=== PATIENT | female | born 1960 | race Caucasian/White ===

== ENCOUNTER → 2020-05-26 11:12 | Outpatient (BNVA) | payer BC, SELFPAY | PROVIDERS: Family Provider Family Medicine; PCP Family Medicine; Visit Provider Internal Medicine | DX: M10.9 Gout, unspecified (principal); Z11.59 Encounter for screening for other viral diseases; Z79.899 Other long term (current) drug therapy; D86.9 Sarcoidosis, unspecified; M25.50 Pain in unspecified joint; E11.9 Type 2 diabetes mellitus without complications; Z79.84 Long term (current) use of oral hypoglycemic drugs | CPT/HCPCS: 36415; 99204 ==

== ENCOUNTER 2020-05-26 13:39 | Outpatient (CLI) | payer BC, SELFPAY ==
--- NOTE | 2020-05-26 13:47 | XRR_ITS ---
PROCEDURE INFORMATION: Exam: XR Left Foot Exam date and time: 05/26/2020 1:51 PM Age: 59 years old Clinical indication: Pain; Foot; Bilateral; Additional info: Foot pain TECHNIQUE: Imaging protocol: XR Left foot. Views: 1 or 2 views. COMPARISON: No relevant prior studies available. FINDINGS: Bones/joints: Normal. Soft tissues: Normal. XR/XR foot LT 2V [id number] IMPRESSION: No acute findings.
--- NOTE | 2020-05-26 13:47 | XRR_ITS ---
PROCEDURE INFORMATION: Exam: XR Left Hand Exam date and time: 05/26/2020 1:51 PM Age: 59 years old Clinical indication: Pain; Hand; Bilateral; Additional info: Hand pain TECHNIQUE: Imaging protocol: XR Left hand. Views: 3 or more views. COMPARISON: CR XR hand LT min 3V* [id number] 02/03/2020 11:53 AM FINDINGS: Bones/joints: Normal. Soft tissues: Soft tissue edema is seen in the lateral aspect of the hand. XR/XR hand LT 2V [id number] IMPRESSION: 1. No acute bony abnormality. 2. Soft tissue edema lateral hand
--- NOTE | 2020-05-26 13:47 | XRR_ITS ---
PROCEDURE INFORMATION: Exam: XR Pelvis Exam date and time: 05/26/2020 1:51 PM Age: 59 years old Clinical indication: Pelvic pain; Additional info: Si pain TECHNIQUE: Imaging protocol: XR pelvis. Views: 1 or 2 view. COMPARISON: No relevant prior studies available. FINDINGS: Bones/joints: Unremarkable. No acute fracture. Soft tissues: Unremarkable. XR/XR pelvis 1-2V* [id number] IMPRESSION: No acute findings.
--- NOTE | 2020-05-26 13:47 | XRR_ITS ---
PROCEDURE INFORMATION: Exam: XR Right Hand Exam date and time: 05/26/2020 1:51 PM Age: 59 years old Clinical indication: Pain; Hand; Bilateral; Additional info: Hand pain TECHNIQUE: Imaging protocol: XR Right hand. Views: 1 or 2 views. COMPARISON: No relevant prior studies available. FINDINGS: Bones/joints: Normal. Soft tissues: Normal. XR/XR hand RT 2V [id number] IMPRESSION: No acute findings.
--- NOTE | 2020-05-26 13:47 | XRR_ITS ---
PROCEDURE INFORMATION: Exam: XR Left Knee Exam date and time: 05/26/2020 1:51 PM Age: 59 years old Clinical indication: Pain; Knee; Bilateral; Additional info: Knee pain TECHNIQUE: Imaging protocol: XR Left knee. Views: 1 or 2 views. COMPARISON: No relevant prior studies available. FINDINGS: Bones/joints: Negative for acute bony abnormality. There is narrowing of the patellofemoral compartment and the medial compartment consistent with moderate osteoarthritis. Soft tissues: Normal. XR/XR knee LT 1-2V [id number] IMPRESSION: 1. Moderate osteoarthritis 2. Otherwise No acute findings.
--- NOTE | 2020-05-26 13:47 | XRR_ITS ---
PROCEDURE INFORMATION: Exam: XR Right Knee Exam date and time: 05/26/2020 1:51 PM Age: 59 years old Clinical indication: Pain; Knee; Bilateral; Additional info: Knee pain TECHNIQUE: Imaging protocol: XR Right knee. Views: 1 or 2 views. COMPARISON: No relevant prior studies available. FINDINGS: Bones/joints: Narrowing of the medial and patellofemoral compartment is seen consistent with osteoarthritis. Negative for acute bony abnormality. Soft tissues: Normal. XR/XR knee RT 1-2V [id number] IMPRESSION: No acute findings.
--- NOTE | 2020-05-26 13:47 | XRR_ITS ---
PROCEDURE INFORMATION: Exam: XR Right Foot Exam date and time: 05/26/2020 1:51 PM Age: 59 years old Clinical indication: Pain; Foot; Bilateral; Additional info: Foot pain TECHNIQUE: Imaging protocol: XR Right foot. Views: 1 or 2 views. COMPARISON: No relevant prior studies available. FINDINGS: Bones/joints: Negative for acute bony abnormality Soft tissues: Unremarkable XR/XR foot RT 2V [id number] IMPRESSION: No acute findings.
== END 2020-05-26 13:40 | disposition home or self-care (01) ==
LOC: RADWPI 13:43
PROVIDERS: Family Provider Family Medicine; PCP Family Medicine; Visit Provider Internal Medicine
DX: M10.9 Gout, unspecified (principal); M17.12 Unilateral primary osteoarthritis, left knee; M25.442 Effusion, left hand; D86.9 Sarcoidosis, unspecified
CPT/HCPCS: 72170; 73120; 73560; 73620; 82306; 82310; 82728; 83735; 83970; 84100; 84550; 85651; 86140; 86431; 86704; 86803; 86812; 87340

== ENCOUNTER → 2020-06-22 09:48 | Outpatient (BNVA) | payer BC, SELFPAY | PROVIDERS: Family Provider Family Medicine; PCP Physician Assistant; Visit Provider Internal Medicine | DX: M10.9 Gout, unspecified (principal); M25.50 Pain in unspecified joint; M32.9 Systemic lupus erythematosus, unspecified; Z15.89 Genetic susceptibility to other disease; R70.0 Elevated erythrocyte sedimentation rate; E55.9 Vitamin D deficiency, unspecified; R94.5 Abnormal results of liver function studies | CPT/HCPCS: 99214 ==

== ENCOUNTER → 2020-06-29 11:31 | Outpatient (BNVA) | payer BC, SELFPAY | PROVIDERS: Family Provider Family Medicine; PCP Physician Assistant; Visit Provider Internal Medicine | DX: M10.9 Gout, unspecified (principal); R70.0 Elevated erythrocyte sedimentation rate; Z11.1 Encounter for screening for respiratory tuberculosis; Z79.899 Other long term (current) drug therapy; Z15.89 Genetic susceptibility to other disease | CPT/HCPCS: 36415; 80053; 82784; 83516; 84550; 85025; 85651; 86480 ==

== ENCOUNTER 2020-07-06 10:56 | Emergency (ER) | payer BC, SELFPAY ==
[2020-07-06 11:03] VITALS: BP 192/113; PULSE 99; RESP 16; TEMP 36.8; O2SAT 100; BMI 53.1
--- NOTE | 2020-07-06 11:03 | ED_ITS ---
HPI - Nausea/Vomiting/Diarrhea General: Chief complaint: Nausea/Vomiting/Diarrhea Stated complaint: N/V/D Time Seen by Provider: 07/06/20 10:57 Source: patient and EMS Mode of arrival: EMS Limitations: no limitations History of Present Illness: HPI Narrative: 59-year-old female has a long history of gout states rheumatology started on vitamin D little over a week ago and since then she had issues with nausea vomiting diarrhea. She states she is also having a gout flareup and has extreme leg pain is having difficulty walking due to the pain. She denies any abdominal pain. She denies any fever. She denies any worsening improving factors. Associated nausea: Yes Associated symtoms: Reports nausea; Denies chest pain, dysuria or headache(s) Review of Systems Const: Denies: fever(s), chills, body aches or change in appetite Eyes: Denies: blurry vision or eye discomfort ENMT: Denies: throat pain or dental pain Card: Denies: chest pain Resp: Denies: dyspnea GI: Reports: nausea, vomiting and diarrhea : Denies: dysuria Musc: Reports: extremity pain Skin/Breast: Denies: rash Neuro: Denies: headache(s) Psych: Denies: depression [place]/Lymph: Denies: easy bruising All/Imm: Denies: urticaria PFSH ED PFSH: Medical History Gout Family History Mother Cancer CAD (coronary artery disease) Diabetes Hypertension Grandfather Diabetes Social History (Updated 07/06/20 @ 11:09 by Charlie Garcia RN) Smoking and tobacco status: never smoked Alcohol intake: never Substance/Drug Use: never Lives independently: Yes Household members: spouse Marital status: Current occupational status: retired History of recent travel: No Physical Exam Const: COMMON NORMALS: no acute distress, patient oriented x3 and healthy appearing HENMT: COMMON NORMALS: normocephalic and atraumatic HEAD & SCALP: normocephalic and atraumatic Eye: COMMON NORMALS: Equal, round and reactive pupils present and EOMs intact bilaterally PUPIL: Yes Equal, round and reactive pupils present Neck/C-Spine: COMMON NORMALS: full ROM and supple Chest: COMMONS NORMALS: normal inspection of the chest and normal palpation of entire chest wall Resp: COMMON NORMALS: normal respiratory effort, No retractions, No use of accessory muscles and clear to auscultation bilaterally AUSCULTATION: clear to auscultation bilaterally Cardio: COMMON NORMALS: regular rate, regular rhythm and No murmurs present (Cardio) RATE: regular rate RHYTHM: regular rhythm GI: COMMON NORMALS: Normal to inspection, nondistended, normoactive bowel sounds present, Soft to palpation, non-tender and no masses PALPATION: Yes Soft to palpation Extremity: COMMON NORMALS: normal to inspection NARRATIVE EXTREMITY EXAM: Tenderness to bilateral ankles Neuro: COMMON NORMALS: patient oriented x3, moves all extremities and no focal motor deficits Psych: COMMON NORMALS: mental status grossly normal, Normal thought process present and cooperative THOUGHT PROCESS: Normal thought process present Skin: COMMON NORMALS: no rashes or lesions noted and no wounds GENERAL SKIN EXAM: no rashes or lesions noted Course Vital Signs: Vital signs: Vital Signs Temperature 98.2 F 07/06/20 11:03 Pulse Rate 99 07/06/20 11:03 Respiratory Rate 20 H 07/06/20 11:50 Blood Pressure 192/113 07/06/20 11:03 Pulse Oximetry 100 07/06/20 11:03 MDM - Nausea/Vomiting/Diarrhea MDM Narrative: Medical decision making narrative: Patient presents here with nausea along with vomiting likely from her new medication. She also has chronic gout and has leg pain from that. She has no acute findings no signs of DVT in her legs. Abdominal exam is benign with no acute surgical abdomen. 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 She is return if worsening. She understands and agrees to plan. Lab Data: Labs: Lab Results 07/06/20 07/06/20 Range/Units 12:00 12:00 WBC 13.5 H (4.0-10.0) 10^3/ uL RBC 4.41 (4.1-5.3) 10^6/u L Hgb 11.5 (11.5-15.3) g/dL Hct 37.4 (37.0-47.0) % MCV 84.8 (81-99) fL MCH 26.1 L (28.0-34.0) pg MCHC 30.7 (30.0-36.0) g/dL RDW 15.0 (12.1-15.1) % Plt Count 361 (130-400) 10^3/c mm MPV 10.9 H (7.4-10.4) fL Neut % (Auto) 80.2 % Lymph % (Auto) 9.4 % [place] % (Auto) 9.2 % Eos % (Auto) 0.1 % Baso % (Auto) 0.4 % Neut # (Auto) 10.85 H (1.8-7.7) 10^3/u L Lymph # (Auto) 1.3 (0.8-4.8) 10^3/u L [place] # (Auto) 1.2 H (0.2-0.9) 10^3/u L Eos # (Auto) 0.0 (0.0-0.8) 10^3/u L Baso # (Auto) 0.1 (0.0-0.1) 10^3/u L Nucleated RBC % (a uto) 0 % Nucleated RBCs # 0.0 /100WBC Sodium 135 L (136-145) mmol/L Potassium 4.3 (3.5-5.1) mmol/L Chloride 96 L (98-107) mmol/L Carbon Dioxide 25 (22-29) mmol/L Anion Gap 18.3 (5-19) BUN 16 (6-20) mg/dL Creatinine 0.9 (0.5-0.9) mg/dL GFR Calculation 64.1 L (90-130) mL/min Glucose 255 H (65-115) mg/dL Calculated Osmolal ity 290 (285-295) mOsm/k g Calcium 9.9 (8.5-10.5) mg/dL Total Bilirubin 0.4 (0.15-1.2) mg/dL AST 12 (0-32) U/L ALT 11 (0-33) U/L Alkaline Phosphata se 132 H (35-105) IU/L Total Protein 8.6 (6.6-8.7) g/dL Albumin 3.7 (3.5-5.2) g/dL Globulin 4.9 H (1.3-4.6) g/dL Lipase 42 (13-60) U/L Discharge Plan Discharge Patient Disposition: Home Clinical Impression: Gout Qualifiers: Gout site: unspecified site Gout etiology: unspecified cause Chronicity: acute Qualified Code(s): M10.9 - Gout, unspecified Vomiting Qualifiers: Vomiting type: unspecified Vomiting Intractability: unspecified Nausea presence: with nausea Qualified Code(s): R11.2 - Nausea with vomiting, unspecified Condition: Stable Prescriptions: [place] 5-325 mg tablet 1 tab PO Q6H PRN (Reason: pain) Qty: 14 RF: 0 ondansetron 4 mg tablet,disintegrating 4 mg PO Q6H PRN (Reason: nausea and vomiting) Qty: 14 RF: 0 No Action allopurinol 100 mg tablet 400 mg PO DAILY Qty: 120 RF: 2 albuterol sulfate [ProAir HFA] 90 mcg/actuation HFA aerosol inhaler 2 puff INHALATION Q6H PRN (Reason: Shortness Of Breath) RF: 0 amlodipine 5 mg tablet 5 mg PO DAILY RF: 0 fluoxetine [Prozac] 10 mg capsule 10 mg PO DAILY RF: 0 valsartan 160 mg tablet 160 mg PO DAILY RF: 0 colchicine 0.6 mg capsule 0.6 mg PO BID RF: 0 atorvastatin [Lipitor] 40 mg tablet 40 mg PO DAILY RF: 0 metformin 500 mg tablet 500 mg PO BID RF: 0 Ozempic 0.25 mg or 0.5 mg(2 mg/1.5 mL) pen injector 0.5 mg SUBCUT .weekly RF: 0 cholecalciferol (vitamin D3) 1,250 mcg (50,000 unit) capsule 50,000 unit PO .qweek Qty: 14 RF: 0 pioglitazone 15 mg tablet 15 mg PO DAILY RF: 0 Discharge Orders: Discharge Order (Routine); Ordered 07/06/20 Ordered By: Nicolas Pantoja Referrals: Sunshine Brooke PA [Primary Care Provider] - 1-3 days Discharge Diet: Advance as tolerated Discharge Activity: Resume usual activity Patient Instructions: Acute Nausea and Vomiting (ED) Coding Level of Care Code ED Tutoring Clinician for Yarielg Fwd Exam Comprehensive
[2020-07-06] MEDS: sodium chloride 0.9% 1,000 ML 999 ML IV (11:46)
[2020-07-06 11:50] VITALS: RESP 20
[2020-07-06] MEDS: ondansetron 2 mg/ML SDV 2 mL 4 MG IVP (11:50)
[2020-07-06] MEDS: morphine 4 mg/mL SDV 1 mL IVP (11:50)
[2020-07-06 12:13] LABS: Basophils # 0.1 10^3/uL (0.0-0.1); Basophils % 0.4 %; Eosinophils % 0.1 %; Hematocrit 37.4 % (37.0-47.0); Hemoglobin 11.5 g/dL (11.5-15.3); Lymphocytes # 1.3 10^3/uL (0.8-4.8); Lymphocytes % 9.4 %; Mean Corpuscular HGB Conc 30.7 g/dL (30.0-36.0); Mean Corpuscular Hemoglobin 26.1 pg (28.0-34.0); Mean Corpuscular Volume 84.8 fL (81-99); Mean Platelet Volume 10.9 fL (7.4-10.4); Monocytes # 1.2 10^3/uL (0.2-0.9); Monocytes % 9.2 %; Neutrophils # 10.85 10^3/uL (1.8-7.7); Neutrophils % 80.2 %; Nucleated Red Blood Cells % 0 %; Platelet Count 361 10^3/cmm (130-400); Red Blood Count 4.41 10^6/uL (4.1-5.3); White Blood Count 13.5 10^3/uL (4.0-10.0)
[2020-07-06 12:33] LABS: Alanine Aminotransferase 11 U/L (0-33); Albumin Level 3.7 g/dL (3.5-5.2); Alkaline Phosphatase 132 IU/L (35-105); Anion Gap 18.3 (5-19); Aspartate Amino Transferase 12 U/L (0-32); Blood Urea Nitrogen 16 mg/dL (6-20); Calcium 9.9 mg/dL (8.5-10.5); Carbon Dioxide 25 mmol/L (22-29); Chloride 96 mmol/L (98-107); Globulin 4.9 g/dL (1.3-4.6); Glomerular Filtration Rate 64.1 mL/min (90-130); Glucose 255 mg/dL (65-115); Lipase 42 U/L (13-60); Osmolality Calculated 290 mOsm/kg (285-295); Potassium 4.3 mmol/L (3.5-5.1); Sodium 135 mmol/L (136-145); Total Bilirubin 0.4 mg/dL (0.15-1.2); Total Protein 8.6 g/dL (6.6-8.7)
--- NOTE | 2020-07-06 13:51 | PC.NURSE ---
pt up for discharge. assisted pt in getting out of bed and into a wheelchair. pt had diarrhea. attempted to assist pt with gavin care. pt refused. provided the pt with clean gown and assistance to change. pt refused. provided pt with a brief and assistance with putting it on. pt refused. pt assisted outside to her ride's vehicle. placed chucks pads in the seat of the vehicle and pt assisted into the vehicle.
== END 2020-07-06 13:55 | disposition home or self-care (01) ==
PROVIDERS: Emergency Provider Emergency Medicine; PCP Physician Assistant
DX: M10.9 Gout, unspecified (principal); R11.2 Nausea with vomiting, unspecified
CPT/HCPCS: 12345; 36415; 80053; 83690; 85025; 96361; 96374; 96375; 99283; J2270; J2405; J7030

== ENCOUNTER 2021-04-20 15:03 | Outpatient (CLI) | payer BC, SELFPAY ==
--- NOTE | 2021-04-20 15:09 | MM_ITS ---
WS: [id number] BILATERAL DIGITAL SCREENING MAMMOGRAPHY WITH CAD CLINICAL INFORMATION: SCREENING HISTORY: Screening mammogram. No current complaints. COMPARISON: TECHNIQUE: Bilateral CC and MLO views. FINDINGS: Scattered fibroglandular densities bilaterally. No suspicious focal mass, asymmetry, calcifications, or architectural distortion. No evidence of malignancy. Punctate and lucent centered calcifications. Stable ovoid nodule or intramammary lymph node upper outer left breast. Vascular calcification. MM/[place] [id number] IMPRESSION: BI-RADS: 2-Benign FOLLOW UP: 1 Year Follow-up Recommend return to annual screening mammography.
== END 2021-04-20 15:04 | disposition home or self-care (01) ==
LOC: RADSHAW 15:08
PROVIDERS: PCP Physician Assistant; Visit Provider Physician Assistant
DX: Z12.31 Encounter for screening mammogram for malignant neoplasm of breast (principal)
CPT/HCPCS: 77067

== ENCOUNTER 2022-01-03 10:39 | Inpatient (IN) | payer BC, SELFPAY ==
[2022-01-03] VITALS (13 sets, daily range): BP systolic 159–209; BP diastolic 73–117; PULSE 97–114; RESP 14–29; TEMP 36.2–37.3; O2SAT 94–113; BMI 52.7
--- NOTE | 2022-01-03 10:48 | XR_ITS ---
WS: [id number] Exam: XR chest 1V portable [id number] Date/Time of Exam: 01/03/2022 10:51 AM Reason For Exam: sob Comparison 03/12/2019. Findings: The lungs are clear and fully expanded. Costophrenic angles are sharp. No infiltrates. Bronchovascula r relief appears normal. Cardiac silhouette is unremarkable. Bony elements are intact. XR/XR chest 1V portable [id number] IMPRESSION: Unremarkable chest radiograph.
--- NOTE | 2022-01-03 10:48 | ECG_ITS ---
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 Measurements Intervals [place] Rate: 109 P: 57 TX: 173 QRS: 12 QRSD: 81 T: 47 QT: 317 QTc: 428 Interpretive Statements SINUS TACHYCARDIA LOW QRS VOLTAGE IN PRECORDIAL LEADS [QRS DEFLECTION < 1.0 mV IN CHEST LEADS] ABNORMAL RHYTHM ECG No previous ECG available for comparison Electronically Signed On 01-03-2022 17:25:59 CDT by Fracisco Fernandez M.D. [id number]
--- NOTE | 2022-01-03 10:50 | W.ED.SOB ---
HPI - SOB/Dyspnea General: Chief Complaint: Shortness of Breath/Dyspnea Stated Complaint: SOB Time Seen by Provider: 01/03/22 10:43 Source: patient Mode of arrival: ambulatory Limitations: no limitations History of Present Illness: HPI Narrative: 61-year-old female who states that over the last 5 days she been having shortness of breath with cough and having much more dyspnea over the last 2 days patient was seen at [facility] was found to have pneumonia on x-ray and was also hypoxic in the 80s patient was given dexamethasone there along with breathing treatments states she feels a little improved but she still has obvious wheezing dyspnea able to speak in roughly 5-7 word sentences she denies any chest pain. Associated symptoms: Deny abdominal pain, chest pain, nausea or vomiting Review of Systems Const: Reports: body aches, fatigue and malaise Eyes: Denies: blurry vision or eye discomfort ENMT: Denies: throat pain or dental pain Card: Denies: chest pain Resp: Reports: dyspnea, productive cough and wheezing GI: Denies: abdominal pain, nausea, vomiting or diarrhea : Denies: dysuria Musc: Denies: neck pain or back pain Skin/Breast: Denies: rash Neuro: Denies: headache(s) Psych: Denies: depression [place]/Lymph: Denies: easy bruising All/Imm: Denies: urticaria PFSH ED PFSH: Medical History Gout Family History Mother Cancer CAD (coronary artery disease) Diabetes Hypertension Grandfather Diabetes Social History Smoking and tobacco status: never smoked Alcohol intake: never Lives independently: Yes Household members: spouse Marital status: Current occupational status: retired History of recent travel: No Physical Exam Const: COMMON NORMALS: patient oriented x3 GENERAL APPEARANCE: in distress HENMT: COMMON NORMALS: normocephalic and atraumatic HEAD & SCALP: normocephalic and atraumatic Eye: COMMON NORMALS: Equal, round and reactive pupils present and EOMs intact bilaterally PUPIL: Yes Equal, round and reactive pupils present Neck/C-Spine: COMMON NORMALS: full ROM and supple Chest: COMMONS NORMALS: normal inspection of the chest and normal palpation of entire chest wall Resp: EFFORT & INSPECTION: Yes tachypneic, Yes respiratory distress and Yes labored AUSCULTATION: rhonchi and wheezes Cardio: COMMON NORMALS: regular rhythm and No murmurs present (Cardio) RATE: tachycardic RHYTHM: regular rhythm GI: COMMON NORMALS: Normal to inspection, nondistended, normoactive bowel sounds present, Soft to palpation, non-tender and no masses PALPATION: Yes Soft to palpation Extremity: COMMON NORMALS: normal to inspection and full ROM Neuro: COMMON NORMALS: patient oriented x3, moves all extremities and no focal motor deficits Psych: COMMON NORMALS: mental status grossly normal, Normal thought process present and cooperative THOUGHT PROCESS: Normal thought process present Skin: COMMON NORMALS: no rashes or lesions noted and no wounds GENERAL SKIN EXAM: no rashes or lesions noted Course Vital Signs: Vital signs: Vital Signs Temperature 97.9 F 01/03/22 10:45 Pulse Rate 106 H 01/03/22 11:38 Respiratory Rate 26 H 01/03/22 11:38 Blood Pressure 159/94 01/03/22 11:38 Pulse Oximetry 97 01/03/22 11:38 MDM - SOB/Dyspnea Medical Decision Making Patient presents here with cough wheezing dyspnea likely bronchitis x-ray here showed no pneumonia but will treat with antibiotics she does have an elevated lactate she does not appear to be septic. Could be due to hypoxia will trend spoke to hospitalist who will admit at this time. Lab Data : 01/03/22 10:50 01/03/22 10:50 Labs/Radiology: Radiology Impressions Chest X-Ray 01/03/22 10:48 IMPRESSION: Unremarkable chest radiograph. Laboratory Results WBC 9.0 10^3/uL (4.0-10.0) 01/03/22 10:50 RBC 5.01 10^6/uL (4.1-5.3) 01/03/22 10:50 Hgb 13.6 g/dL (11.5-15.3) 01/03/22 10:50 Hct 43.3 % (37.0-47.0) 01/03/22 10:50 MCV 86.4 fl (81-99) 01/03/22 10:50 MCH 27.1 pg (28.0-34.0) L 01/03/22 10:50 MCHC 31.4 g/dL (30.0-36.0) 01/03/22 10:50 RDW 14.9 % (12.1-15.1) 01/03/22 10:50 Plt Count 252 10^3/cmm (130-400) 01/03/22 10:50 MPV 10.8 fL (7.4-10.4) H 01/03/22 10:50 Neut % (Auto) 69.8 % 01/03/22 10:50 Lymph % (Auto) 14.3 % 01/03/22 10:50 [place] % (Auto) 9.2 % 01/03/22 10:50 Eos % (Auto) 3.9 % 01/03/22 10:50 Baso % (Auto) 0.7 % 01/03/22 10:50 Neut # (Auto) 6.30 10^3/uL (1.8-7.7) 01/03/22 10:50 Lymph # (Auto) 1.3 10^3/uL (0.8-4.8) 01/03/22 10:50 [place] # (Auto) 0.8 10^3/uL (0.2-0.9) 01/03/22 10:50 Eos # (Auto) 0.4 10^3/uL (0.0-0.8) 01/03/22 10:50 Baso # (Auto) 0.1 10^3/uL (0.0-0.1) 01/03/22 10:50 Nucleated RBC % (auto) 0 % 01/03/22 10:50 Nucleated RBCs # 0.0 /100WBC 01/03/22 10:50 Sodium 134 mmol/L (136-145) L 01/03/22 10:50 Potassium 4.6 mmol/L (3.5-5.1) 01/03/22 10:50 Chloride 95 mmol/L (98-107) L 01/03/22 10:50 Carbon Dioxide 23 mmol/L (22-29) 01/03/22 10:50 Anion Gap 20.6 (5-19) H 01/03/22 10:50 BUN 16 mg/dL (8-23) 01/03/22 10:50 Creatinine 1.1 mg/dL (0.5-0.9) H 01/03/22 10:50 GFR Calculation 50.5 mL/min (90-130) L 01/03/22 10:50 Glucose 450 mg/dL (65-115) H 01/03/22 10:50 Calculated Osmolality 299 mOsm/kg (285-295) H 01/03/22 10:50 Lactic Acid 3.9 mmol/L (0.5-2.2) H 01/03/22 10:50 Calcium 10.0 mg/dL (8.5-10.5) 01/03/22 10:50 Total Bilirubin 0.4 mg/dL (0.15-1.2) 01/03/22 10:50 AST 36 U/L (0-32) H 01/03/22 10:50 ALT 21 U/L (0-33) 01/03/22 10:50 Alkaline Phosphatase 126 IU/L (35-105) H 01/03/22 10:50 C-Reactive Protein 50.8 mg/L (0.0-4.9) H 01/03/22 10:50 NT-Pro-B Natriuret Pep 88 pg/mL (0-125) 01/03/22 10:50 Total Protein 8.4 g/dL (6.6-8.7) 01/03/22 10:50 Albumin 4.2 g/dL (3.5-5.2) 01/03/22 10:50 Globulin 4.2 g/dL (1.3-4.6) 01/03/22 10:50 SARS-CoV-2 Ag (Rapid) Negative (Negative) 01/03/22 11:03 EKG Data EKG 1: I personally reviewed and interpreted this EKG as follows: EKG Interpretation Date: 01/03/22 EKG interpretation time: 10:55 Interpretation: sinus tach hr [address] or t wave abnormalities qrs 81 qtc 381 Discharge Plan Discharge Patient Disposition: Admitted As Inpatient Clinical Impression: Bronchitis, Acute respiratory failure with hypoxemia Condition: Stable Prescriptions: No Action albuterol sulfate [ProAir HFA] 90 mcg/actuation HFA aerosol inhaler 2 puff INHALATION Q4H PRN (Reason: Shortness Of Breath) 0RF fluoxetine [Prozac] 10 mg capsule 10 mg PO BID 0RF valsartan 160 mg tablet 160 mg PO DAILY 0RF colchicine 0.6 mg capsule 0.6 mg PO BID PRN (Reason: GOUT) 0RF atorvastatin [Lipitor] 40 mg tablet 40 mg PO QPM 0RF Ozempic 0.25 mg or 0.5 mg(2 mg/1.5 mL) pen injector 0.5 mg SUBCUT Q7D 0RF Rx Instructions: ON SUNDAYS Vitamin D3 25 mcg (1,000 unit) Tablet 3,000 unit PO DAILY 0RF allopurinol 100 mg tablet 200 mg PO QAM 0RF Referrals: Sunshine Brooke PA [Primary Care Provider] - Coding Level of Care Code ED Maintenance Of Way Supervisor for Chg Fwd Exam Comprehensive
[2022-01-03 11:02] LABS: Basophils # 0.1 10^3/uL (0.0-0.1); Basophils % 0.7 %; Eosinophils # 0.4 10^3/uL (0.0-0.8); Eosinophils % 3.9 %; Hematocrit 43.3 % (37.0-47.0); Hemoglobin 13.6 g/dL (11.5-15.3); Lymphocytes # 1.3 10^3/uL (0.8-4.8); Lymphocytes % 14.3 %; Mean Corpuscular HGB Conc 31.4 g/dL (30.0-36.0); Mean Corpuscular Hemoglobin 27.1 pg (28.0-34.0); Mean Corpuscular Volume 86.4 fl (81-99); Mean Platelet Volume 10.8 fL (7.4-10.4); Monocytes # 0.8 10^3/uL (0.2-0.9); Monocytes % 9.2 %; Neutrophils % 69.8 %; Nucleated Red Blood Cells % 0 %; Platelet Count 252 10^3/cmm (130-400); Red Blood Count 5.01 10^6/uL (4.1-5.3); Red Cell Distribution Width 14.9 % (12.1-15.1)
[2022-01-03] MEDS: levalbuterol 1.25 mg/3 mL Neb INHALATION ×4 (11:07→23:58)
[2022-01-03 11:18] LABS: Lactic Sepsis W/Reflex 3.9 mmol/L (0.5-2.2)
[2022-01-03 11:29] LABS: Alanine Aminotransferase 21 U/L (0-33); Albumin Level 4.2 g/dL (3.5-5.2); Alkaline Phosphatase 126 IU/L (35-105); Anion Gap 20.6 (5-19); Aspartate Amino Transferase 36 U/L (0-32); Blood Urea Nitrogen 16 mg/dL (8-23); C Reactive Protein 50.8 mg/L (0.0-4.9); Carbon Dioxide 23 mmol/L (22-29); Chloride 95 mmol/L (98-107); Globulin 4.2 g/dL (1.3-4.6); Glomerular Filtration Rate 50.5 mL/min (90-130); Glucose 450 mg/dL (65-115); NT Pro B Type Natriuretic Pept 88 pg/mL (0-125); Osmolality Calculated 299 mOsm/kg (285-295); Potassium 4.6 mmol/L (3.5-5.1); Sodium 134 mmol/L (136-145); Total Bilirubin 0.4 mg/dL (0.15-1.2); Total Protein 8.4 g/dL (6.6-8.7)
[2022-01-03 11:30] LABS: Creatinine Clr Calc Pharmacy 64.6811
[2022-01-03 11:32] LABS: SARS Covid-2 Antigen Negative (Negative)
[2022-01-03] MEDS: sodium chloride 0.9% 1,000 ML 999 ML IV (11:32)
[2022-01-03] MEDS: piperacillin-tazobactam 3.375 GM in sodium chloride 0.9% (plus) 50 ML IV (11:33)
[2022-01-03] MEDS: insulin regular-human 100 units/1 mL 10 UNIT IVP (12:08)
--- NOTE | 2022-01-03 12:12 | P.HP_ITS ---
Providers/Chief Complaint Primary Care Provider: Sunshine Brooke Chief Complaint: SOB History of Present Illness Cassie Hickman is a 61 year old female who presents to the hospital from home with history of shortness of breath and wheezing for the last week. She reports has been getting slowly worse. She denies any chills or fever, although reports she had a low-grade temperature at her primary care provider's office this morning where she got a dose of IM steroids and a breathing treatment. She denies any chest discomfort, other than some tightness with her wheezing. She has had no nausea or vomiting. No sick contacts. Reports she is a little swollen, but it is relatively normal for her. She has had a slight sore throat. She has had a significantly runny nose. She has a past history of wheezing in the past, but nothing this severe. Review of Systems General: Reports: 10 or more systems reviewed and unremarkable except in HPI and below Const: Denies: fever(s) or chills Eyes: Denies: change in vision ENMT: Reports: nasal discharge; Denies: throat pain Card: Denies: chest pain Resp: Reports: dyspnea, non-productive cough and wheezing GI: Denies: abdominal pain, nausea, vomiting, hematochezia or melena : Denies: flank pain Musc: Denies: neck pain Skin/Breast: Denies: rash Neuro: Denies: headache(s) Psych: Denies: anxiety or depression Endo: Denies: polyuria Mendoza/Lymph: Denies: easy bruising All/Imm: Denies: urticaria Medications/Allergies Home Medications Medication Instructions Recorded Confirmed Last Taken Type albuterol sulfate 90 mcg/actuation 2 puff INHALATION Q4H PRN 05/26/20 01/03/22 Unknown History aerosol inhaler (ProAir HFA) atorvastatin 40 mg tablet (Lipitor) 40 mg PO QPM 05/26/20 01/03/22 01/02/22 History colchicine 0.6 mg capsule 0.6 mg PO BID PRN 05/26/20 01/03/22 07/05/20 History fluoxetine 10 mg capsule (Prozac) 10 mg PO BID 05/26/20 01/03/22 07/05/20 History semaglutide (Ozempic) 0.5 mg SUBCUT Q7D ml 05/26/20 01/03/2222 History valsartan 160 mg tablet 160 mg PO DAILY 05/26/20 01/03/22 01/02/22 History allopurinol 100 mg tablet 200 mg PO QAM 01/03/22 01/03/22 01/02/22 History cholecalciferol (vitamin D3) 25 3,000 unit PO DAILY 01/03/22 01/03/22 Unknown History mcg (1,000 unit) tablet (Vitamin D3) Allergies Allergy/AdvReac Type Severity Reaction Status Date / Time No Known Allergies Allergy Verified 01/03/22 11:08 PFSH Acute PFSH: Medical History (Updated 01/03/22 @ 12:20 by Ermias Mccord MD) Anxiety Diabetes mellitus Edema Gout Hyperlipidemia Hypertension Obesity Surgical History (Updated 01/03/22 @ 12:17 by Ermias Mccord MD) H/O section H/O tubal ligation H/O: hysterectomy Hx laparoscopic cholecystectomy Family History Mother Cancer CAD (coronary artery disease) Diabetes Hypertension Grandfather Diabetes Social History Smoking and tobacco status: never smoked Alcohol intake: never Lives independently: Yes Household members: spouse Marital status: Current occupational status: retired History of recent travel: No Vitals/I&O/Wt Last Vital Signs Temp 97.9 F 01/03/22 10:45 Pulse 106 H 01/03/22 11:38 Resp 26 H 01/03/22 11:38 BP 159/94 01/03/22 11:38 Pulse Ox 97 01/03/22 11:38 Weight last 48 hrs Weight 122.47 kg Physical Exam Narrative: General exam is a white female, with audible wheezing when I entere d the room, who appears to have mild shortness of breath. HEENT: Pupils equally round. Oropharynx clear. Neck is supple no lymphadenopathy or thyromegaly Cardiovascular slight tachycardia, no murmur Lungs primarily expiratory wheezing. Coarse breath sounds bilaterally. Abdomen is soft nontender positive bowel sounds. No obvious organomegaly exam is deferred Extremities show 1+ edema bilaterally. No cyanosis or clubbing. Skin no rash Neuro no obvious focal deficits. Data : 01/03/22 10:50 01/03/22 10:50 Other Labs: Chest x-ray without infiltrate Lactic acid elevated at 3.9, LFTs normal with the exception of alk phos slightly high at 126 and AST of 36 Rapid COVID-negative Micro: Microbiology 01/03/22 10:50 Blood Culture - Preliminary Blood SPECIMEN COLLECTED 01/03/22 11:05 Blood Culture - Preliminary Blood SPECIMEN COLLECTED A&P Assessment and plan (1) Asthma exacerbation: Patient without history of COPD, or asthma. She has used an inhaler before, with wheezing. I suspect she may have underlying asthma, triggered by by lower respiratory tract infection. At this point it is unknown if it is viral or not. Continue pulmonary toilet, every 6 hours. Add budesonide twice daily IV steroids, hopefully converting over quickly to p.o. IV antibiotics consisting of Rocephin and azithromycin Check COVID PCR Note that BNP was checked and normal Secondary to lower extremity edema check venous duplex, Lasix x1 Status: Acute (2) Lower respiratory tract infection: Rocephin and azithromycin as noted Status: Acute (3) Acute kidney injury: Close monitoring of renal function Hold ARB until renal function known tomorrow Check urinalysis Status: Acute (4) Hypertension: See above Status: Acute (5) Diabetes mellitus: Anion gap, lactic acid level elevated. Doubt DKA but will check serum ketones. Insulin was given in the emergency department. Placed on Lantus, sliding scale moderate Status: Acute Plan Lower extremity edema. Check venous duplex. Lasix 20 mg IV x1. Full code Lovenox for DVT prophylaxis Attestations Medical Necessity Statement*: Currently will place under observation secondary to asthma exacerbation, lower respiratory tract infection. If breathing does not improve relatively rapidly she may require more days however. 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
--- NOTE | 2022-01-03 12:18 | USCV_ITS ---
Cassie Hickman Age: 61 Gender: F : 1960 Exam Date: 01/03/2022 13:32 Ordering Phys: Ermias Mccord MD Technologist: Rolan Umana Exam Location: [facility] [place]_ Indication: bilat edema HISTORY: Lower extremity swelling. PROCEDURES: The venous duplex Doppler examination of both lower extremities was performed in the standard fashion. The following venous structures were evaluated: common femoral vein, profunda vein, proximal portion of the greater saphenous vein, superficial femoral vein, and the popliteal vein. In addition, the posterior tibial and peroneal trunk were evaluated. FINDINGS: Normal 2-D Doppler and augmentation and compressibility throughout the lower extremity venous structures. Additional imaging through the proximal calf veins also reveals no thrombus. Limited evaluation of the greater saphenous vein is patent with no thrombus. CONCLUSIONS No DVT bilateral lower extremities. Dr. Rosy Flanagan DO (Electronically Signed) Final Date: 03 Jan 2022 13:57 S
[2022-01-03] MEDS: vancomycin 1,000 MG in sodium chloride 0.9% 250 ML 250 MG IV (12:21)
[2022-01-03] MEDS: levalbuterol 0.63 mg/3 mL Neb INHALATION (12:26)
[2022-01-03 12:33] LABS: Ketone (Acetest) Serum Negative (Negative)
[2022-01-03 12:44] LABS: Reflex Lactate Order REFLEX LACTIC ORDERD
[2022-01-03 12:53] LABS: Thyroid Stimulating Hormone 2.04 uIU/mL (0.27-4.20)
[2022-01-03] MEDS: FUROsemide 10 mg/mL SDV 2mL 20 MG IVP (13:08)
[2022-01-03 13:39] LABS: Glucose Point of Care 356 mg/dL (70-110)
[2022-01-03 14:16] LABS: Adenovirus Not Detected (NOT DETECT); Chlamydia Pneumoniae Not Detected (NOT DETECT); Coronavirus 229E,HKU1,NL63,OC4 Not Detected (NOT DETECT); Human Metapneumovirus Not Detected (NOT DETECT); Human Rhinovirus/Enterovirus Not Detected (NOT DETECT); Influenza A Not Detected (NOT DETECT); Influenza A H1 Not Detected (NOT DETECT); Influenza A H1-2009 Not Detected (NOT DETECT); Influenza A H3 Not Detected (NOT DETECT); Influenza B Not Detected (NOT DETECT); Mycoplasma Pneumoniae Not Detected (NOT DETECT); Parainfluenza Virus Type 1 Not Detected (NOT DETECT); Parainfluenza Virus Type 2 Not Detected (NOT DETECT); Parainfluenza Virus Type 3 Detected (NOT DETECT); Parainfluenza Virus Type 4 Not Detected (NOT DETECT); Respiratory Syncytial Virus A Not Detected (NOT DETECT); Respiratory Syncytial Virus B Not Detected (NOT DETECT); SARS-COV-2 Not Detected (NOT DETECT)
[2022-01-03 14:38] LABS: Parainfluenza Virus Type 1 Not Detected (NOT DETECT); Parainfluenza Virus Type 2 Not Detected (NOT DETECT); Parainfluenza Virus Type 3 Detected (NOT DETECT); Parainfluenza Virus Type 4 Not Detected (NOT DETECT); Results from Genmark
[2022-01-03 14:41] LABS: Lactic Acid level (Lactate) 3.3 mmol/L (0.5-2.2)
[2022-01-03] MEDS: enoxaparin 40 mg/0.4 mL Syringe SUBCUT (16:40)
[2022-01-03] MEDS: azithromycin 500 MG in sodium chloride 0.9% 250 ML 250 MG IV (16:40)
[2022-01-03] MEDS: insulin glargine 100 units/1 mL 10 UNIT SUBCUT ×2 (16:50→22:18)
[2022-01-03 16:58] LABS: Glucose Point of Care 410 mg/dL (70-110)
[2022-01-03] MEDS: fluoxetine 10 mg Capsule PO (18:28)
[2022-01-03] MEDS: atorvastatin 40 mg Tablet PO (18:28)
[2022-01-03] MEDS: cefTRIAXone 1,000 MG in sodium chloride 0.9% (plus) 50 ML 100 MG IV (18:28)
[2022-01-03] MEDS: insulin lispro 100 unit/1 mL SUBCUT ×2 (18:29→22:18)
[2022-01-03] MEDS: budesonide 0.5 mg/2 mL Neb INHALATION (19:42)
[2022-01-03 21:36] LABS: Glucose Point of Care 429 mg/dL (70-110)
[2022-01-04] VITALS (21 sets, daily range): BP systolic 138–195; BP diastolic 74–115; PULSE 96–121; RESP 16–24; TEMP 36.4–37.2; O2SAT 91–97
[2022-01-04] MEDS: levalbuterol 1.25 mg/3 mL Neb INHALATION ×6 (04:05→23:14)
[2022-01-04 04:25] LABS: Protein Urine Neg (Negative); Urine Appearance SL Hazy (CLEAR); Urine Color Yellow (Yellow); pH Urine 5 (5-7)
[2022-01-04 04:26] LABS: Bacteria Urine TRACE /hpf; Bilirubin Urine Neg (Negative); Blood Urine Neg (Negative); Glucose Urine UA 4+ (Normal); Ketones Urine Negative (Negative); Leukocyte Esterase Urine Trace (Negative); Nitrate Urine Negative (Negative); RBC Urine 0-4 /hpf (0-2); Squamous Epithelial Cell Urine 0-4 /hpf (0-5); Urobilinogen Urine Norm (Negative); WBC Urine 15-25 /hpf (0-5)
[2022-01-04 04:27] LABS: Add Urine Culture? Yes; Mucus Urine TRACE /hpf
[2022-01-04 05:00] LABS: Basophils % 0.3 %; Hematocrit 42.9 % (37.0-47.0); Lymphocytes # 0.7 10^3/uL (0.8-4.8); Lymphocytes % 8.1 %; Mean Corpuscular HGB Conc 30.3 g/dL (30.0-36.0); Mean Corpuscular Hemoglobin 26.7 pg (28.0-34.0); Mean Corpuscular Volume 88.3 fl (81-99); Mean Platelet Volume 10.8 fL (7.4-10.4); Monocytes # 0.1 10^3/uL (0.2-0.9); Monocytes % 1.5 %; Neutrophils # 8.03 10^3/uL (1.8-7.7); Neutrophils % 87.5 %; Nucleated Red Blood Cells % 0 %; Platelet Count 232 10^3/cmm (130-400); Red Blood Count 4.86 10^6/uL (4.1-5.3); Red Cell Distribution Width 14.6 % (12.1-15.1); White Blood Count 9.2 10^3/uL (4.0-10.0)
[2022-01-04 05:23] LABS: Alanine Aminotransferase 19 U/L (0-33); Albumin Level 3.7 g/dL (3.5-5.2); Alkaline Phosphatase 116 IU/L (35-105); Anion Gap 19.4 (5-19); Aspartate Amino Transferase 22 U/L (0-32); Blood Urea Nitrogen 17 mg/dL (8-23); Calcium 9.9 mg/dL (8.5-10.5); Carbon Dioxide 22 mmol/L (22-29); Chloride 94 mmol/L (98-107); Globulin 3.6 g/dL (1.3-4.6); Glomerular Filtration Rate 63.7 mL/min (90-130); Glucose 491 mg/dL (65-115); Magnesium 1.7 mg/dL (1.7-2.3); Osmolality Calculated 295 mOsm/kg (285-295); Potassium 4.4 mmol/L (3.5-5.1); Sodium 131 mmol/L (136-145); Total Bilirubin 0.3 mg/dL (0.15-1.2); Total Protein 7.3 g/dL (6.6-8.7)
[2022-01-04] MEDS: allopurinol 100 mg Tablet 200 MG PO (06:40)
[2022-01-04 06:44] LABS: Glucose Point of Care 444 mg/dL (70-110)
--- NOTE | 2022-01-04 07:32 | PM.PN ---
Subjective Subjective: Cassie feels like she is wheezing some less. Note chest tightness today. Feels less short of breath. Requiring 2 L of oxygen currently, and does report significant shortness of breath with exertion. Medications: Reviewed: Yes Vitals/I&O/Wt Last Vital Signs Temp 97.9 F 01/04/22 04:00 Pulse 98 01/04/22 04:06 Resp 17 01/04/22 04:06 BP 180/88 01/04/22 04:00 Pulse Ox 95 01/04/22 04:06 01/03/22 01/04/22 01/04/22 22:59 06:59 14:59 Intake Total 410 / 1460 Output Total 1350 / 1350 Balance 410 / 1460 -1350 / 110 Weight last 48 hrs Weight 122.47 kg Physical Exam Narrative: General exam is a white female, no distress. Wheezing less audible. Coughing frequently through exam. HEENT: Pupils equally round. Oropharynx clear. Neck is supple no lymphadenopathy or thyromegaly Cardiovascular regular rate and rhythm without murmur Lungs primarily bilateral expiratory wheezing, coarse breath sounds Abdomen is soft nontender positive bowel sounds. No obvious organomegaly Extremities show trace edema bilaterally. No cyanosis or clubbing. Skin no rash Data : 01/04/22 04:47 01/04/22 04:47 Micro: Microbiology 01/03/22 10:50 Blood Culture - Preliminary Blood SPECIMEN COLLECTED 01/03/22 11:05 Blood Culture - Preliminary Blood SPECIMEN COLLECTED A&P Assessment and plan (1) Asthma exacerbation: Patient without history of COPD, or asthma. She has used an inhaler before, with wheezing. I suspect she may have underlying asthma, triggered by by lower respiratory tract infection. She is negative for COVID, but positive for parainfluenza Continue pulmonary toilet, every 4 hours. Continue budesonide twice daily Change IV steroids to p.o. Continue IV antibiotics consisting of Rocephin and azithromycin. She may have superimposed bacterial pneumonia Note that BNP was checked and normal Status: Acute (2) Lower respiratory tract infection: Rocephin and azithromycin as noted She is tested positive for parainfluenza Status: Acute (3) Acute kidney injury: Renal function improved Initiate ARB Urinalysis checked, possible infection. Continue Rocephin Status: Acute (4) Hypertension: Add back ARB Status: Acute (5) Diabetes mellitus: No evidence of DKA. Serum ketones negative Increase sliding scale to aggressive Increase Lantus Check hemoglobin A1c Change IV steroids to p.o. which should help some with elevated sugar Status: Acute Plan Lower extremity edema. Venous duplex negative Full code Lovenox for DVT prophylaxis Attestations Medical Necessity Statement*: Needs continued hospitalization for pulmonary toilet. She is still requiring 2 L of oxygen, significantly short of breath with exertion and wheezing. I believe she has significant asthma exacerbation and is not yet appropriate to go home, with possibility of severe worsening rehospitalization should this occur. Change to regular admission. 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
[2022-01-04] MEDS: insulin glargine 100 units/1 mL 20 UNIT SUBCUT (07:40)
[2022-01-04] MEDS: budesonide 0.5 mg/2 mL Neb INHALATION ×2 (07:50→20:02)
[2022-01-04] MEDS: acetaminophen 325 mg Tablet 650 MG PO (08:20)
[2022-01-04] MEDS: losartan 50 mg Tablet PO (08:20)
[2022-01-04] MEDS: insulin lispro 100 unit/1 mL SUBCUT ×4 (08:21→22:24)
[2022-01-04] MEDS: fluoxetine 10 mg Capsule PO ×2 (08:21→18:11)
[2022-01-04 08:42] LABS: Estmated Average Glucose 295; Hemoglobin A1C 11.9 % (4.0-6.0)
--- NOTE | 2022-01-04 10:45 | PC.CHAP ---
Pastoral Care Encounter/Spiritual Assessment Type of Contact [] Declined shop welder visit [] Patient/Family/Request visit [] Outpatient visit [] Follow-up visit [] Physician referral [] Code/Alert [x] Routine visit [] Staff referral [] Actively dying [] Patient sleeping [] Family support [] [] Out of room [] Palliative care [] [] Receiving care in room [] Pre-surgical visit [] Trauma [] Long length of stay [] ICU visit [] Other: Relational/Emotional Strength [x] Patient feels connected with others/family/visitors/staff [] Distress [] Loneliness/isolation [] Abandonment Spirituality of Patient [x] Person of Flavia [] Attends Zoroastrianism of their Flavia []x Believes in Prayer [] Reads Bible or Worship materials [] There are Spiritual issues to be addressed Optical Laboratory Technician Interventions [x] Prayer [x Active listening x[] Non-anxious presence [xx] Spiritual/emotional support x[] Crisis/trauma care [] Spiritual counseling [] Bereavement support [] Provided bereavement packet [] Provided Bible/devotional materials [] Provided toy/stuffed animal, coloring book to patient or family member [] Provided Communion [] Anointing/[place] [] Salvation [x] Completed spiritual assessment [] Other: Impact on Illness or Injury [] Angry [] Fearful [] Anxious [] Often cries [] Exhaustion [] Unable to work [] Unable to attend pentecostalism [] Unable to walk/stand [] Unable to read [] Unable to drive [] Unable to eat/drink [] Unable to sleep [] Unable to be with family [] Patient intubated [] Other: Summary Time spent with patient 15 min
[2022-01-04 11:07] LABS: Glucose Point of Care 496 mg/dL (70-110)
--- NOTE | 2022-01-04 15:01 | ECG_ITS ---
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 Measurements Intervals [place] Rate: 121 P: 64 MS: 174 QRS: 23 QRSD: 91 T: 34 QT: 319 QTc: 453 Interpretive Statements SINUS TACHYCARDIA LOW QRS VOLTAGE IN PRECORDIAL LEADS [QRS DEFLECTION < 1.0 mV IN CHEST LEADS] NONSPECIFIC ST ELEVATION [0.05+ mV ST ELEVATION] ABNORMAL RHYTHM ECG Compared to ECG 01/03/2022 10:55:35 ST (T wave) deviation now present Electronically Signed On 01-04-2022 18:56:54 CDT by Omar Vásquez M.D. [id number]
[2022-01-04] MEDS: azithromycin 500 MG in sodium chloride 0.9% 250 ML 250 MG IV (16:43)
[2022-01-04] MEDS: enoxaparin 40 mg/0.4 mL Syringe SUBCUT (16:45)
[2022-01-04 17:45] LABS: Glucose Point of Care 489 mg/dL (70-110)
[2022-01-04] MEDS: atorvastatin 40 mg Tablet PO (18:11)
[2022-01-04] MEDS: cefTRIAXone 1,000 MG in sodium chloride 0.9% (plus) 50 ML 100 MG IV (18:12)
[2022-01-04 22:01] LABS: Glucose Point of Care 283 mg/dL (70-110)
[2022-01-04] MEDS: insulin glargine 100 units/1 mL 30 UNIT SUBCUT (22:24)
[2022-01-05] VITALS (17 sets, daily range): BP systolic 152–179; BP diastolic 74–80; PULSE 74–131; RESP 16–22; TEMP 36.3–36.9; O2SAT 91–97
[2022-01-05] MEDS: levalbuterol 1.25 mg/3 mL Neb INHALATION ×5 (03:30→20:03)
[2022-01-05] MEDS: allopurinol 100 mg Tablet 200 MG PO (05:48)
[2022-01-05] MEDS: acetaminophen 325 mg Tablet 650 MG PO ×2 (05:51→17:19)
[2022-01-05 06:33] LABS: Glucose Point of Care 255 mg/dL (70-110)
[2022-01-05] MEDS: losartan 50 mg Tablet PO (08:15)
[2022-01-05] MEDS: fluoxetine 10 mg Capsule PO ×2 (08:15→17:13)
[2022-01-05] MEDS: insulin lispro 100 unit/1 mL SUBCUT ×4 (08:16→20:38)
[2022-01-05] MEDS: predniSONE 20 mg Tablet 40 MG PO (08:16)
[2022-01-05] MEDS: budesonide 0.5 mg/2 mL Neb INHALATION ×2 (09:04→20:03)
--- NOTE | 2022-01-05 09:38 | PM.PN ---
Subjective Subjective: Cassie reports she feels slightly better than yesterday. She is still wheezing quite a bit. Gets very short of breath with any exertion. Medications: Reviewed: Yes Vitals/I&O/Wt Last Vital Signs Temp 98.4 F 01/05/22 07:27 Pulse 116 H 01/05/22 09:11 Resp 18 01/05/22 09:11 BP 171/74 01/05/22 07:27 Pulse Ox 96 01/05/22 09:11 01/04/22 01/05/22 01/05/22 22:59 06:59 14:59 Intake Total 1070 / 1680 50 / 1730 360 / 360 Output Total 1500 / 1500 200 / 200 Balance -430 / 180 50 / 230 160 / 160 Weight last 48 hrs Weight 122.47 kg Physical Exam Narrative: General exam is a white female, no distress. Neck is supple no lymphadenopathy or thyromegaly Cardiovascular regular rate and rhythm without murmur Lungs bilateral expiratory wheezes Abdomen is soft nontender positive bowel sounds. No obvious organomegaly Extremities show trace edema bilaterally. No cyanosis or clubbing. Skin no rash Data : 01/04/22 04:47 01/04/22 04:47 Micro: Microbiology 01/03/22 11:05 Blood Culture - Preliminary Blood NEGATIVE TO DATE 01/03/22 10:50 Blood Culture - Preliminary Blood NEGATIVE TO DATE A&P Assessment and plan (1) Asthma exacerbation: Patient without history of COPD, or asthma. She has used an inhaler before, with wheezing. I suspect she may have underlying asthma, triggered by by lower respiratory tract infection. She is negative for COVID, but positive for parainfluenza Continue pulmonary toilet, every 4 hours. Continue budesonide twice daily Continue oral steroids, 40 mg a day Discontinue IV antibiotics when urine culture results no changed to doxycycline Note that BNP was checked and normal Status: Acute (2) Lower respiratory tract infection: Change IV antibiotics to oral doxycycline when urine culture results known She is tested positive for parainfluenza Status: Acute (3) Acute kidney injury: Renal function improved Continue ARB Urinalysis checked, possible infection. Continue Rocephin Status: Acute (4) Hypertension: Continue current medications Status: Acute (5) Diabetes mellitus: No evidence of DKA. Serum ketones negative Increase sliding scale to aggressive Increase Lantus further Hemoglobin A1c was markedly elevated. She is amenable to taking long-acting insulin on discharge. Status: Acute Plan Lower extremity edema. Venous duplex negative Full code Lovenox for DVT prophylaxis Attestations Medical Necessity Statement*: Needs continued hospitalization secondary to severe COPD exacerbation requiring frequent neb treatments. Coding Level of Care Code Acute Elevator Operator Service for g Fwd Diagnoses Asthma exacerbation J45.901 Lower respiratory tract infection J22 Acute kidney injury N17.9 Hypertension I10 Diabetes mellitus E11.9
[2022-01-05] MEDS: predniSONE 20 mg Tablet PO (10:49)
[2022-01-05 11:31] LABS: Glucose Point of Care 362 mg/dL (70-110)
[2022-01-05] MEDS: azithromycin 500 MG in sodium chloride 0.9% 250 ML 250 MG IV (15:18)
[2022-01-05] MEDS: enoxaparin 40 mg/0.4 mL Syringe SUBCUT (15:19)
[2022-01-05] MEDS: cefTRIAXone 1,000 MG in sodium chloride 0.9% (plus) 50 ML 100 MG IV (17:13)
[2022-01-05] MEDS: atorvastatin 40 mg Tablet PO (17:13)
[2022-01-05 17:18] LABS: Glucose Point of Care 478 mg/dL (70-110)
[2022-01-05] MEDS: insulin lispro 100 unit/1 mL 10 UNIT SUBCUT (17:37)
[2022-01-05] MEDS: insulin glargine 100 units/1 mL 40 UNIT SUBCUT (20:37)
[2022-01-05 20:44] LABS: Glucose Point of Care 419 mg/dL (70-110)
[2022-01-05] MEDS: LORazepam 2 mg/mL INJ 1 mL 1.5 MG IVP (23:33)
--- NOTE | 2022-01-05 23:45 | PC.NURSE ---
Patient c/o not sleeping for days. Patient becoming anxious and weepy eyed more so since confused patient admitted in same room. Informed Dr Toure and received onetime order for Ativan 1.5mg IVP which has been administered as ordered. Instructed patient on ativan. Patient veralized complete understanding and thanks. Will continue to monitor.
[2022-01-06] VITALS (11 sets, daily range): BP systolic 154–186; BP diastolic 72–94; PULSE 84–109; RESP 16–22; TEMP 36.4–36.7; O2SAT 92–97
[2022-01-06 03:10] LABS: Basophils # 0.1 10^3/uL (0.0-0.1); Basophils % 0.4 %; Eosinophils # 0.1 10^3/uL (0.0-0.8); Eosinophils % 0.8 %; Hematocrit 39.2 % (37.0-47.0); Hemoglobin 12.1 g/dL (11.5-15.3); Lymphocytes # 2.4 10^3/uL (0.8-4.8); Lymphocytes % 20.1 %; Mean Corpuscular HGB Conc 30.9 g/dL (30.0-36.0); Mean Corpuscular Hemoglobin 27.1 pg (28.0-34.0); Mean Corpuscular Volume 87.9 fl (81-99); Mean Platelet Volume 10.5 fL (7.4-10.4); Monocytes # 1.1 10^3/uL (0.2-0.9); Monocytes % 9.6 %; Neutrophils # 7.91 10^3/uL (1.8-7.7); Neutrophils % 66.9 %; Nucleated Red Blood Cells % 0 %; Platelet Count 237 10^3/cmm (130-400); Red Blood Count 4.46 10^6/uL (4.1-5.3); Red Cell Distribution Width 15.1 % (12.1-15.1); White Blood Count 11.8 10^3/uL (4.0-10.0)
[2022-01-06 03:40] LABS: Anion Gap 15.6 (5-19); Blood Urea Nitrogen 23 mg/dL (8-23); Carbon Dioxide 25 mmol/L (22-29); Chloride 102 mmol/L (98-107); Glomerular Filtration Rate 56.4 mL/min (90-130); Glucose 225 mg/dL (65-115); Osmolality Calculated 299 mOsm/kg (285-295); Potassium 3.6 mmol/L (3.5-5.1); Sodium 139 mmol/L (136-145)
[2022-01-06] MEDS: levalbuterol 1.25 mg/3 mL Neb INHALATION ×3 (04:52→11:54)
[2022-01-06 06:36] LABS: Glucose Point of Care 324 mg/dL (70-110)
--- NOTE | 2022-01-06 07:20 | PC.NURSE ---
received bedside report. pt a/o resting comfortably, no needs identified at this time. reviewed poc and assumed care of patient.
[2022-01-06] MEDS: losartan 50 mg Tablet PO (08:29)
[2022-01-06] MEDS: fluoxetine 10 mg Capsule PO (08:29)
[2022-01-06] MEDS: predniSONE 20 mg Tablet 40 MG PO (08:30)
[2022-01-06] MEDS: insulin lispro 100 unit/1 mL SUBCUT ×2 (08:30→13:41)
[2022-01-06] MEDS: budesonide 0.5 mg/2 mL Neb INHALATION (08:40)
--- NOTE | 2022-01-06 11:46 | P.DS_ITS ---
Discharge Providers Date of Admission: 01/04/22 10:34 Date of Discharge: January 06, 2022 Attending Provider at Admission: Ermias Mccord MD Attending Provider at Discharge: Pernell Bello Primary Care Provider: Sunshine Brooke Diagnoses at Discharge Discharge Diagnosis (1) Asthma exacerbation: Status: Acute (2) Lower respiratory tract infection: Status: Acute (3) Acute kidney injury: Status: Acute (4) Hypertension: Status: Acute (5) Diabetes mellitus: Status: Acute Reason for Visit Reason for Visit: SOB Hospital Course Hospital Course Pleasant 61-year-old lady with diabetes, morbid obesity, HTN, HLD, other chronic comorbidities was admitted for assessment of management after presenting with shortness of breath and severe wheezing, progressively getting worse, low-grade temps, without improvement with outpatient treatment. She was found to have parainfluenza infection, was treated for also asthma exacerbation, treated with IV steroid initially, transition to p.o., breathing treatments, inhaled steroid, empirically also with Rocephin and azithromycin. COVID-19 was negative. Transiently required oxygen support at low rate up to 1-2 L. Due to noted uncontrolled diabetes, A1c 11.9 was also started on Lantus, consistent carbohydrate cardiac diet. Sugars likely to also be exacerbated by steroid. Similar blood pressures noted not optimally controlled, running 170s-190s systolic. Noted to have mild acute kidney injury on presentation, creatinine up to 1.1, baseline 0.9, but did well with continuation of valsartan. Creatinine today is 1. Please follow-up renal function. Amlodipine is added to help manage blood pressures. Today she reports she is feeling much better and asked to return home. She is still having mild wheezing, but feels much better, is getting up in the room. Doing well on room air at least at rest, pending home O2 evaluation. She knows to seek medical attention in case of any worsening of symptoms. Please follow-up for resolution of pneumonia. Refer for formal pulmonary function testing if not done to assess for possible asthma. She is started on Lantus at discharge in addition to Ozempic. Please follow-up diabetes control. She is given prescription for lancets and strips, states she has a glucometer. Insulin requirement likely to decrease that she is weaning off prednisone. Please assist her with weight loss, as this will help her with management of diabetes and other chronic comorbidities. Lower extremity edema was assessed with venous duplex which was negative for DVT. Physical Exam Narrative: Reports she is feeling much better. Asks to go home. Const: COMMON NORMALS: alert GENERAL APPEARANCE: cooperative NUTRITIONAL APPEARANCE: obese morbidly obese ORIENTATION/CONSCIOUSNESS: Yes awake OTHER: Pleasant, conversant. HENMT: COMMON NORMALS: normocephalic, EAC's normal, Normal external nose present and moist oral mucous membranes HEAD & SCALP: normocephalic NOSE: Normal external nose present EXTERNAL AUDITORY CANAL: EAC's normal Neck/C-Spine: COMMON NORMALS: no meningeal signs Chest: CHEST: Yes Symmetrical chest wall rise Resp: EFFORT & INSPECTION: Yes able to speak in complete sentences AUSCULTATION: wheezes Cardio: COMMON NORMALS: regular rate, regular rhythm and No murmurs present (Cardio) RATE: regular rate RHYTHM: regular rhythm GI: COMMON NORMALS: Normal to inspection, nondistended, normoactive bowel sounds present, Soft to palpation and non-tender PALPATION: Yes Soft to palpation Extremity: COMMON NORMALS: no pedal edema Neuro: COMMON NORMALS: moves all extremities SENSORIUM/ORIENTATION: Yes alert MENINGEAL SIGNS: Yes no meningeal signs Psych: COMMON NORMALS: mental status grossly normal Skin: COMMON NORMALS: no wounds RASHES: no rashes Discharge Data Studies Completed and Pending Completed Studies During Hospitalization Category Date Time Status XR chest 1V portable [id number] Stat Exams 01/03/22 10:48 [place] [id number] Routine Ultrasound 01/03/22 12:18 Completed Pending at discharge Category Date Time Status Blood Culture Stat Lab 01/03/22 10:50 Results Radiology Impressions Chest X-Ray 01/03/22 10:48 IMPRESSION: Unremarkable chest radiograph. Laboratory Results WBC 11.8 10^3/uL (4.0-10.0) H 01/06/22 02:40 RBC 4.46 10^6/uL (4.1-5.3) 01/06/22 02:40 Hgb 12.1 g/dL (11.5-15.3) 01/06/22 02:40 Hct 39.2 % (37.0-47.0) 01/06/22 02:40 MCV 87.9 fl (81-99) 01/06/22 02:40 MCH 27.1 pg (28.0-34.0) L 01/06/22 02:40 MCHC 30.9 g/dL (30.0-36.0) 01/06/22 02:40 RDW 15.1 % (12.1-15.1) 01/06/22 02:40 Plt Count 237 10^3/cmm (130-400) 01/06/22 02:40 MPV 10.5 fL (7.4-10.4) H 01/06/22 02:40 Neut % (Auto) 66.9 % 01/06/22 02:40 Lymph % (Auto) 20.1 % 01/06/22 02:40 Graham % (Auto) 9.6 % 01/06/22 02:40 Eos % (Auto) 0.8 % 01/06/22 02:40 Baso % (Auto) 0.4 % 01/06/22 02:40 Neut # (Auto) 7.91 10^3/uL (1.8-7.7) H 01/06/22 02:40 Lymph # (Auto) 2.4 10^3/uL (0.8-4.8) 01/06/22 02:40 Graham # (Auto) 1.1 10^3/uL (0.2-0.9) H 01/06/22 02:40 Eos # (Auto) 0.1 10^3/uL (0.0-0.8) 01/06/22 02:40 Baso # (Auto) 0.1 10^3/uL (0.0-0.1) 01/06/22 02:40 Nucleated RBC % (auto) 0 % 01/06/22 02:40 Nucleated RBCs # 0.0 /100WBC 01/06/22 02:40 Sodium 139 mmol/L (136-145) 01/06/22 02:40 Potassium 3.6 mmol/L (3.5-5.1) 01/06/22 02:40 Chloride 102 mmol/L (98-107) 01/06/22 02:40 Carbon Dioxide 25 mmol/L (22-29) 01/06/22 02:40 Anion Gap 15.6 (5-19) 01/06/22 02:40 BUN 23 mg/dL (8-23) 01/06/22 02:40 Creatinine 1.0 mg/dL (0.5-0.9) H 01/06/22 02:40 GFR Calculation 56.4 mL/min (90-130) L 01/06/22 02:40 Glucose 225 mg/dL (65-115) H 01/06/22 02:40 POC Glucose 324 mg/dL (70-110) H 01/06/22 06:08 Estimat Average Glucose 295 01/04/22 04:47 Hemoglobin A1c 11.9 % (4.0-6.0) H 01/04/22 04:47 Calculated Osmolality 299 mOsm/kg (285-295) H 01/06/22 02:40 Lactic Acid 3.9 mmol/L (0.5-2.2) H 01/03/22 10:50 Lactic Acid (Sepsis) 3.3 mmol/L (0.5-2.2) H 01/03/22 14:18 Calcium 9.0 mg/dL (8.5-10.5) 01/06/22 02:40 Magnesium 1.7 mg/dL (1.7-2.3) 01/04/22 04:47 Total Bilirubin 0.3 mg/dL (0.15-1.2) 01/04/22 04:47 AST 22 U/L (0-32) 01/04/22 04:47 ALT 19 U/L (0-33) 01/04/22 04:47 Alkaline Phosphatase 116 IU/L (35-105) H 01/04/22 04:47 C-Reactive Protein 50.8 mg/L (0.0-4.9) H 01/03/22 10:50 NT-Pro-B Natriuret Pep 88 pg/mL (0-125) 01/03/22 10:50 Total Protein 7.3 g/dL (6.6-8.7) 01/04/22 04:47 Albumin 3.7 g/dL (3.5-5.2) 01/04/22 04:47 Globulin 3.6 g/dL (1.3-4.6) 01/04/22 04:47 TSH 2.04 uIU/mL (0.27-4.20) 01/03/22 10:50 Urine Color Yellow (Yellow) 01/04/22 04:07 Urine Appearance Sl hazy (CLEAR) 01/04/22 04:07 Urine pH 5 (5-7) 01/04/22 04:07 Ur Specific [place] 1.010 (1.005-1.030) 01/04/22 04:07 Urine Protein Neg (Negative) 01/04/22 04:07 Urine Glucose (UA) 4+ (Normal) H 01/04/22 04:07 Urine Ketones Negative (Negative) 01/04/22 04:07 Urine Blood Neg (Negative) 01/04/22 04:07 Urine Nitrate Negative (Negative) 01/04/22 04:07 Urine Bilirubin Neg (Negative) 01/04/22 04:07 Urine Urobilinogen Norm mg/dL (Negative) 01/04/22 04:07 Ur Leukocyte Esterase Trace (Negative) H 01/04/22 04:07 Urine RBC 0-4 /hpf (0-2) H 01/04/22 04:07 Urine WBC 15-25 /hpf (0-5) H 01/04/22 04:07 Ur Squamous Epith Cells 0-4 /hpf (0-5) H 01/04/22 04:07 Amorphous Sediment Not Reportable 01/04/22 04:07 Urine Bacteria Trace /hpf (NONE) 01/04/22 04:07 Urine Mucus Trace /hpf 01/04/22 04:07 Urine Yeast Trace /hpf 01/04/22 04:07 Serum Ketones Negative (Negative) 01/03/22 10:50 Coronavirus 229E (PCR) Not detected (NOT DETECT) 01/03/22 12:25 Parainfluenza 1 (PCR) Not detected (NOT DETECT) 01/03/22 14:37 Parainfluenza 2 (PCR) Not detected (NOT DETECT) 01/03/22 14:37 Parainfluenza 3 (PCR) Detected (NOT DETECT) A 01/03/22 14:37 Parainfluenza 4 (PCR) Not detected (NOT DETECT) 01/03/22 14:37 SARS-CoV-2 (PCR) Not detected (NOT DETECT) 01/03/22 12:25 SARS-CoV-2 Ag (Rapid) Negative (Negative) 01/03/22 11:03 Vitals Last Vital Signs Temp 98.1 F 01/06/22 11:16 Pulse 108 H 01/06/22 11:16 Resp 18 01/06/22 11:16 BP 186/83 01/06/22 11:16 Pulse Ox 92 01/06/22 11:16 Discharge Plan Discharge Patient Disposition: Home Condition: Stable Prescriptions: New Lantus Solostar U-100 Insulin 100 unit/mL (3 mL) insulin pen 40 unit SUBCUT QPM Qty: 15 3RF (DME) diabetic supplies, miscellan. Misc See Rx Instructions .Route Qty: 1 0RF Rx Instructions: 120 glucometer strips and lancets cefdinir 300 mg capsule 300 mg PO BID 2 Days Qty: 4 0RF azithromycin 250 mg tablet 250 mg PO DAILY 3 Days Qty: 3 0RF Rx Instructions: start on day 2 of therapy prednisone 20 mg Tablet See Rx Instructions .ROUTE .COMPLEX Qty: 11 0RF Rx Instructions: 2 tab for 3 days, then 1 tab for 3 days, then 1/2 tab for 4 days. dextromethorphan-guaifenesin 5-50 mg/5 mL liquid 20 ml PO Q4H PRN (Reason: cough) Qty: 118 1RF amlodipine 5 mg tablet 5 mg PO DAILY Qty: 90 0RF Continued fluoxetine [Prozac] 10 mg capsule 10 mg PO BID 0RF valsartan 160 mg tablet 160 mg PO DAILY 0RF colchicine 0.6 mg capsule 0.6 mg PO BID PRN (Reason: GOUT) 0RF atorvastatin [Lipitor] 40 mg tablet 40 mg PO QPM 0RF Ozempic 0.25 mg or 0.5 mg(2 mg/1.5 mL) pen injector 0.5 mg SUBCUT Q7D 0RF Rx Instructions: ON SUNDAYS Vitamin D3 25 mcg (1,000 unit) Tablet 3,000 unit PO DAILY 0RF allopurinol 100 mg tablet 200 mg PO QAM 0RF ProAir HFA 90 mcg/actuation HFA aerosol inhaler 2 puff INHALATION Q4H PRN (Reason: Shortness Of Breath) Qty: 8.5 0RF Discharge Orders: Discharge Order (Routine); Ordered 01/06/22 Ordered By: Pernell Bello Referrals: Sunshine Brooke PA [Primary Care Provider] - 4-7 days Discharge Diet: Cardiac and Diabetic Discharge Activity: Increase activity as tolerated Patient Instructions: Diabetes and Diet, Prednisone (By mouth), Azithromycin (By mouth), Amlodipine (By mouth), Cefdinir (By mouth), Insulin Glargine (By injection), Asthma (GEN), Viral Pneumonia (GEN), Acute Kidney Injury (GEN), How to Give an Insulin Injection (GEN), Weight Management (GEN), Chronic Hypertension (GEN), Parainfluenza (GEN) Activity Restrictions/Additional Instructions: Continue albuterol inhaler as needed, you are given a refill. Due to parainfluenza infection with viral pneumonia you are given a steroid taper as well. Short course of antibiotic with cefdinir and azithromycin. Please follow-up with your primary doctor for resolution of viral pneumonia. Discussed with your primary doctor assessment by formal pulmonary function testing for asthma once you recover from acute illness. Please monitor your blood glucose closely. You are given a prescription for insulin Lantus. Steroid likely may contribute to increased glucose levels, however, as you will be coming off steroids your glucose should be improving. You may need to decrease insulin Lantus dose. If your glucose levels are falling below 100, decrease Lantus dose by 5-7 units and continue to monitor glucose. If your glucose is over low, below 60-70, do not take Lantus, take sugary snacks, recheck sugar. If persistently low, seek medical attention. Maintain consistent carbohydrate diet. Work with your primary doctor to help you lose weight. This will help with long-term control of diabetes, high blood pressure, and other comorbidities. Monitor blood pressures closely, maintain cardiac diet. Please have your primary doctor reassess your renal function due to noted mild acute kidney injury on presentation to the hospital. Avoid NSAIDs (medications like ibuprofen, Aleve, etc.). In case you feel worse, with more shortness of breath, or any other concerning symptoms, seek medical attention. Discharge Attestations Time Spent in Discharge Care*: greater than 30 min Quality Metrics Clinical Quality Measures [ No reported AMI, CVA or VTE this stay] Coding Level of Care Code Acute [facility] note Diagnoses Asthma exacerbation J45.901 Lower respiratory tract infection J22 Acute kidney injury N17.9 Hypertension I10 Diabetes mellitus E11.9
[2022-01-06] MEDS: acetaminophen 325 mg Tablet 650 MG PO (11:52)
[2022-01-06 13:09] LABS: Glucose Point of Care 241 mg/dL (70-110)
--- NOTE | 2022-01-06 14:29 | PC.NURSE ---
pharmacy delivered medications to bed. education given by them on glucometer and insulin administration. I reviewed discharge instructions in detail regarding medications, follow up and indications to return to the ed. pt left hospital via [facility] to private vehicle with family. verbalized understanding of instructions and has no futher questions at this time.
== END 2022-01-06 14:29 | disposition home or self-care (01) | DRG 202 ==
LOC: ER 13:41 → MEDSURG 14:35
PROVIDERS: Admitting Provider Internal Medicine; Emergency Provider Emergency Medicine; PCP Physician Assistant; Visit Provider Internal Medicine
DX: J45.901 Unspecified asthma with (acute) exacerbation (principal); J96.01 Acute respiratory failure with hypoxia; Z68.43 Body mass index [BMI] 50.0-59.9, adult; N17.9 Acute kidney failure, unspecified; J20.9 Acute bronchitis, unspecified; F41.9 Anxiety disorder, unspecified; E11.9 Type 2 diabetes mellitus without complications; M10.9 Gout, unspecified; E78.5 Hyperlipidemia, unspecified; I10 Essential (primary) hypertension; E66.01 Morbid (severe) obesity due to excess calories; Z79.4 Long term (current) use of insulin
CPT/HCPCS: 36415; 36416; 71045; 80048; 80053; 81001; 82009; 82962; 83036; 83605; 83735; 83880; 84443; 85025; 86140; 87040; 87086; 87426; 87631; 87635; 93005; 93970; 94640; 96365; 96367; 96372; 96375; G0378; J0456; J0696; J1650; J1815 ×2; J1940; J2060; J2543; J2930; J3370; J7030; J7050; J7512; J7614; J7626

== ENCOUNTER 2022-07-25 07:40 | Outpatient (CLI) | payer BC, SELFPAY ==
--- NOTE | 2022-07-25 07:45 | MM_ITS ---
WS: [id number] BILATERAL SCREENING DIGITAL TOMOSYNTHESIS MAMMOGRAM WITH CAD HISTORY: SCREENING COMPARISON: 04/20/2021, 08/08/2018 Bilateral CC and MLO views with tomosynthesis and synthetic mammography submitted. Computer aided det ection analyzed. Difficult exam due to body habitus. Breast composition: There are scattered areas of fibroglandular density. No suspicious masses, microc alcifications or architectural distortion. Benign calcifications and long-term stability nodules whic h are probably lymph nodes. MM/[place] [id number] IMPRESSION: BI-RADS: 2-Benign FOLLOW UP: 1 Year Follow-up
== END 2022-07-25 07:41 | disposition home or self-care (01) ==
LOC: RAD 07:41
PROVIDERS: PCP Physician Assistant; Visit Provider Physician Assistant
DX: Z12.31 Encounter for screening mammogram for malignant neoplasm of breast (principal)
CPT/HCPCS: 77063; 77067

== ENCOUNTER 2024-06-19 12:28 | Outpatient (CLI) | payer BC, SELFPAY ==
--- NOTE | 2024-06-19 12:34 | MM_ITS ---
WS: [id number] BILATERAL 3D TOMOSYNTHESIS DIGITAL SCREENING MAMMOGRAPHY WITH CAD CLINICAL INFORMATION: SCREENING HISTORY: Screening mammogram. No current complaints. COMPARISON: 2021 TECHNIQUE: Bilateral CC and MLO views. FINDINGS: Scattered fibroglandular densities bilaterally. No suspicious focal mass, asymmetry, calcifications, or architectural distortion. No evidence of malignancy. Punctate and lucent centered calcifications. Vascular calcifications. MM/MM scr tomosynthesis [id number] IMPRESSION: DENSITY: There are scattered areas of fibroglandular density. BI-RADS: 2 - Benign. FOLLOW UP: 1 Year Follow-up Recommend return to annual screening mammography.
== END 2024-06-19 12:29 | disposition home or self-care (01) ==
PROVIDERS: PCP Physician Assistant; Visit Provider Physician Assistant
DX: Z12.31 Encounter for screening mammogram for malignant neoplasm of breast (principal); R92.323 Mammographic fibroglandular density, bilateral breasts; R92.1 Mammographic calcification found on diagnostic imaging of breast
CPT/HCPCS: 77063; 77067